=== PATIENT | male | born 1960 | race Caucasian/White ===

== ENCOUNTER → 2018-03-14 | Outpatient (CLI) | payer OTHER ==
--- NOTE | 2018-03-14 15:09 | RAD ---
ANKLE LEFT 3V History: Left ankle injury, pain just below lateral malleolus Comparison: None. Findings: 3 views of the left ankle are submitted. No acute fracture or dislocation is identified. Impression: 1. No acute osseous abnormality is identified. Electronically signed by: Edmund Morales MD (03/14/2018 3:06 PM) [id number]
== END | disposition home or self-care (01) ==
LOC: DXRAD 14:43
PROVIDERS: ATTEND Physician Assistant
DX: S99.812D Other specified injuries of left ankle, subsequent encounter (principal); X58.XXXD Exposure to other specified factors, subsequent encounter
CPT/HCPCS: 73610

== ENCOUNTER 2018-07-04 16:04 | Emergency (ER) | payer OTHER ==
[~2018-07-04] VITALS: Ht 175.3 cm; Wt 79.4 kg
[2018-07-04 16:29] VITALS: BP 137/82
[2018-07-04] MEDS ORDERED: methylPREDNISolone SOD SUCC PF 125 MG/2 ML VIAL. IM ONE (17:15)
[2018-07-04] MEDS ORDERED: METH4TAB2 PO (17:22)
[2018-07-04] MEDS ORDERED: HYDR25TA PO (17:22)
[2018-07-04] MEDS ORDERED: BETA15CR5 TP (17:22)
--- NOTE | 2018-07-04 17:23 | PHYS DOC ---
Past History Past Medical History: No Pertinent History Past Surgical History: No Surgical History Alcohol Use: None Drug Use: None Adult General Chief Complaint Chief Complaint: SKIN RASH/ABSCESS HPI HPI Patient is a 57-year-old male who presents with complaining of skin rash for one week. Patient states he was exposed to poison patricia or poison oak one week ago and has rash in nature, chest, upper extremity in genital area that did not get better with applying calamine and taking Benadryl. Patient denies fever and chills, shortness of breath, nausea and vomiting. Review of Systems Review of Systems Constitutional: Denies fever or chills [] Eyes: Denies change in visual acuity, redness, or eye pain [] HENT: Denies nasal congestion or sore throat [] Respiratory: Denies cough or shortness of breath [] Cardiovascular: No additional information not addressed in HPI [] GI: Denies abdominal pain, nausea, vomiting, bloody stools or diarrhea [] : Denies dysuria or hematuria [] Musculoskeletal: Denies back pain or joint pain [] Integument: Reports rash and erythema Neurologic: Denies headache, focal weakness or sensory changes [] Endocrine: Denies polyuria or polydipsia [] All other systems were reviewed and found to be within normal limits, except as documented in this note. Current Medications Current Medications Current Medications Medications (Trade) Dose Ordered Sig/Noé Start Time Stop Time Status Last Admin Dose Admin Methylprednisolone Sodium Succinate (SOLU-Medrol 125MG VIAL) 125 mg 1X ONCE 07/04/18 17:15 07/04/18 17:16 DC 07/04/18 17:14 125 MG Allergies Allergies Allergies Coded Allergies Type Severity Reaction Last Updated Verified Sulfa (Sulfonamide Antibiotics) Allergy Severe 07/04/18 Yes Physical Exam Physical Exam Constitutional: Well developed, well nourished, mild distress, non-toxic appearance. [] HENT: Normocephalic, atraumatic Eyes: PERRLA, EOMI, conjunctiva normal, no discharge. [] Neck: Normal range of motion, no tenderness, supple, no stridor. [] Cardiovascular:Heart rate regular rhythm, no murmur [] Lungs & Thorax: Bilateral breath sounds clear to auscultation [] Skin: Warm, dry, particular rash on make, upper back, upper extremities, genital area and trunk without sign of infection Back: No tenderness, no CVA tenderness. [] Extremities: No tenderness, no cyanosis, no clubbing, ROM intact, no edema. [] Neurologic: Alert and oriented X 3, normal motor function, normal sensory function, no focal deficits noted. [] Psychologic: Affect normal, judgement normal, mood normal. [] Current Patient Data Vital Signs Vital Signs Date Time Temp Pulse Resp B/P (MAP) Pulse Ox O2 Delivery O2 Flow Rate FiO2 07/04/18 16:29 98.3 65 18 97 Room Air EKG EKG [] Radiology/Procedures Radiology/Procedures [] Course & Med Decision Making Course & Med Decision Making discharge: I've spoken with the patient and/or caregivers. I've explained the patient's condition, diagnosis and treatment plan based on information available to me at this time. I've answered the patient's and/or caregivers questions and addressed any concerns. The patient and/or caregivers have a good understanding the patient's diagnosis, condition and treatment plan as can be expected at this point. Vital signs have been stabilized. The patient's condition is stable for discharge from the emergency department. The patient will pursue further outpatient evaluation with her primary care provider or other designated consulting physician as outlined in the discharge instructions. Patient and/or caregivers are agreeable to this plan of care and follow-up instructions have been explained in detail. The patient and/or caregivers have received these instructions in written format and expressed understanding of these discharge instructions. The patient and her caregivers are aware that if any significant change in condition or worsening of symptoms should prompt him to immediately return to this of the closest emergency department. If an emergent department is not readily available I would encourage him to call 911. uGrwinder Disclaimer Dragon Disclaimer This electronic medical record was generated, in whole or in part, using a voice recognition dictation system. Departure Departure: Impression: Primary Impression: Contact dermatitis Additional Impression: Poison patricia dermatitis Disposition: HOME, SELF-CARE (1720) Condition: STABLE Referrals: KARISHMA BURRELL (PCP) Patient Instructions: Poison [place] Additional Instructions: Drink plenty of liquids Follow-up with your primary care physician in 3-5 days Return to ER if not getting better Scripts Betamethasone Dipropionate (BETAMETHASONE DIPROPIONATE) 15 Gm Cream..g. 1 NAVEEN TP BID, #45 GM 1 Refill Prov: ALEX ALVARADO MD 07/04/18 Methylprednisolone (MEDROL) 4 Mg Tab.ds.pk 1 PKG PO UD, #1 PKG Prov: ALEX ALVARADO MD 07/04/18 Hydroxyzine Hcl (HYDROXYZINE HCL) 25 Mg Tablet 1 TAB PO TID PRN for ITCHING, #30 TAB Prov: ALEX ALVARADO MD 07/04/18 Problem Qualifiers ALEX ALVARADO MD Jul 04, 2018 17:23
== END 2018-07-04 17:31 | disposition home or self-care (01) ==
LOC: ER 16:04
DX: L23.7 Allergic contact dermatitis due to plants, except food (principal); Z88.2 Allergy status to sulfonamides
CPT/HCPCS: 96372; 99283; J2930

== ENCOUNTER 2019-06-06 14:49 | Emergency (ER) | payer OTHER ==
[~2019-06-06] VITALS: Ht 175.3 cm; Wt 88.7 kg
[~2019-06-06 14:49] MED LIST: BETA15CR5 TP; HYDR25TA PO; METH4TAB2 PO
[2019-06-06 15:06] VITALS: BP 142/87
[2019-06-06] MEDS ORDERED: HYDR25TA PO (15:15)
[2019-06-06] MEDS ORDERED: DOXY100T PO (15:15)
--- NOTE | 2019-06-06 15:16 | PHYS DOC ---
Past History Past Medical History: No Pertinent History Past Surgical History: No Surgical History Smoking: Non-smoker Alcohol Use: None Drug Use: None Adult General Chief Complaint Chief Complaint: INSECT BITE HPI HPI Patient is a 58-year-old male presents complaining of a presumed spider bite on his left arm. This happened Wednesday. On Wednesday he started developing some increasing aches and pains including some generalized myalgias. This improved with ibuprofen. Patient is also been taking Benadryl and applying calamine lotion to the area. No purulent drainage. No fever. No difficulty breathing. No numbness or tingling. The myalgias improved over the course of the next day but there are still some remaining. No worsening with exertion. No shortness of breath. Symptoms are moderate in intensity.[] Review of Systems Review of Systems Constitutional: Denies fever or chills [] Eyes: Denies change in visual acuity, redness, or eye pain [] HENT: Denies nasal congestion or sore throat [] Respiratory: Denies cough or shortness of breath [] Cardiovascular: No chest pain, no palpitations, no worsening of pain in the arm with exertion.[] GI: Denies abdominal pain, nausea, vomiting, bloody stools or diarrhea [] : Denies dysuria or hematuria [] Musculoskeletal: Denies back pain or joint pain [] Integument: See history of present illness[] Neurologic: Denies headache, focal weakness or sensory changes [] Endocrine: Denies polyuria or polydipsia [] All other systems were reviewed and found to be within normal limits, except as documented in this note. Allergies Allergies Allergies Coded Allergies Type Severity Reaction Last Updated Verified Sulfa (Sulfonamide Antibiotics) Allergy Severe 07/04/18 Yes Physical Exam Physical Exam Constitutional: Well developed, well nourished, no acute distress, non-toxic appearance. [] HENT: Normocephalic, atraumatic, bilateral external ears normal, oropharynx moist, no oral exudates, nose normal. [] Eyes: PERRLA, EOMI, conjunctiva normal, no discharge. [] Neck: Normal range of motion, no tenderness, supple, no stridor. [] Cardiovascular:Heart rate regular rhythm, no murmur [] Lungs & Thorax: Bilateral breath sounds clear to auscultation [] Abdomen: Bowel sounds normal, soft, no tenderness, no masses, no pulsatile masses. [] Skin: Warm, dry, there are 3, 2 mm in diameter areas that appear excoriated. There is mild erythema around these areas of excoriation. No purulent drainage. No drainable abscess. No axillary lymphadenopathy. He is distally neurovascularly intact.[] Back: No tenderness, no CVA tenderness. [] Extremities: No tenderness, no cyanosis, no clubbing, ROM intact, no edema. [] Neurologic: Alert and oriented X 3, normal motor function, normal sensory function, no focal deficits noted. [] Psychologic: Affect normal, judgement normal, mood normal. [] EKG EKG [] Radiology/Procedures Radiology/Procedures [] Course & Med Decision Making Course & Med Decision Making Pertinent Labs and Imaging studies reviewed. (See chart for details) ED course: Patient arrived, was placed in bed, and tolerated exam well. Patient initially was uncertain as to when his last tetanus vaccine was administered so one was ordered. Prior to administration of his tetanus vaccine here, patient was able to access his medical records and found that one had been administered in 2017. Discussed findings and plan with patient who voiced understanding. All questions were answered. He was discharged in improved condition Medical decision making: There is no evidence of abscess, and eschar from brown recluse spider, nor generalized abdominal cramping from a black . There appears to be some local cellulitis from the break in the skin at the location of the injury. His other symptoms may have been from an envenomation but it seems to be resolving. Will treat with antihistamines as well as antibiotics for the cellulitis.[] Dragon Disclaimer Dragon Disclaimer This electronic medical record was generated, in whole or in part, using a voice recognition dictation system. Departure Departure: Impression: Primary Impression: Accidental spider bite Disposition: 01 HOME, SELF-CARE Condition: IMPROVED Referrals: KARISHMA BURRELL (PCP) Follow-up in 2 days Patient Instructions: Cellulitis, Spider Bite Additional Instructions: Keep the area clean and dry. Apply warm compresses for 15 minutes at a time, at least 4 times a day. Follow-up with your regular doctor in 2 days. Return to the ER if worsening pain, purulent drainage, fever of more than 101, or any other concerns. Scripts Hydroxyzine Hcl (HYDROXYZINE HCL) 25 Mg Tablet 1 TAB PO TID for allergic reaction, #30 TAB Prov: CLAUDY WRIGHT DO 06/06/19 Doxycycline Hyclate (DOXYCYCLINE HYCLATE) 100 Mg Tablet 1 TAB PO BID for cellulitis, #20 TAB Prov: CLAUDY WRIGHT DO 06/06/19 CLAUDY WRIGHT DO Jun 06, 2019 15:16
[2019-06-06] MEDS ORDERED: DIPHTH,PERTUSS(ACELL),TET TOX 0.5 ML DISP.SYRIN. VAX IM ONE (15:30)
== END 2019-06-06 15:18 | disposition home or self-care (01) ==
LOC: ER 14:49
DX: T63.301A Toxic effect of unspecified spider venom, accidental (unintentional), initial encounter (principal); M79.10 Myalgia, unspecified site; Z88.2 Allergy status to sulfonamides; Y92.89 Other specified places as the place of occurrence of the external cause
CPT/HCPCS: 99283

== ENCOUNTER 2021-12-09 13:38 | Emergency (ER) | payer OTHER ==
[~2021-12-09] VITALS: Ht 175.3 cm; Wt 90.4 kg
[~2021-12-09 13:38] MED LIST changes: +DOXY100T PO
--- NOTE | 2021-12-09 13:45 | PHYS DOC ---
Past History Past Medical History: No Pertinent History Past Surgical History: No Surgical History Smoking: Non-smoker Alcohol Use: None Drug Use: None General Adult HPI: HPI: Patient is a 61-year-old male who presents with palpitations. He has experienced intermittent palpitation symptoms since the year 1995. In 2000, he saw a professor of geology, wore a Holter monitor for period of time, no definitive diagnosis was made. He is unsure of the specifics. He reports that he has symptoms daily. He reports that today his symptoms seem to be coming more frequently than usual. He denies chest pain, dyspnea, dizziness, syncope, numbness or tingling, motor weakness, abdominal pain, nausea or vomiting. He has been eating and drinking well. He does report that his been drinking more coffee recently. No unintentional dramatic weight loss. He does have a primary care physician, with whom he has an appointment on Wednesday. He has not brought up his palpitation symptoms to his PCP recently. Review of Systems: Review of Systems: As per HPI. Allergies: Allergies: Allergies Coded Allergies Type Severity Reaction Last Updated Verified Sulfa (Sulfonamide Antibiotics) Allergy Severe 07/04/18 Yes Physical Exam: PE: Constitutional: Well developed, well nourished, no acute distress, non-toxic appearance. [] HENT: Normocephalic, atraumatic, no facial or oral swelling. Mucous membranes are moist. Eyes: Injectable normal, sclera anicteric Neck: Normal range of motion, no tenderness, supple, no stridor. Trachea midline, no thyromegaly Cardiovascular:Heart rate regular rhythm, was 2 radial and +2 posterior tibial pulses bilaterally. Lungs & Thorax: Clear to auscultation bilaterally without rales, rhonchi or wheezes. Abdomen: [place] is soft, nondistended, nontender to palpation. No palpable mass organomegaly. Skin: Warm, dry, no erythema, no rash. [] Back: No tenderness, no CVA tenderness. [] Extremities: No tenderness, no cyanosis, no clubbing, ROM intact, no edema. No calf tenderness. Neurologic: Alert and oriented X 3, normal motor function, normal sensory function, no focal deficits noted. [] Psychologic: Affect normal, judgement normal, mood normal. He is pleasant and cooperative. EKG: EKG: EKG is interpreted at 1357 Rhythm is sinus Rate is 63 bpm [place] is normal No STEMI Radiology/Procedures: Radiology/Procedures: [] Heart Score: C/O Chest Pain: No Risk Factors: Risk Factors: DM, Current or recent (<one month) smoker, HTN, HLP, family history of CAD, obesity. Risk Scores: Score 0 - 3: 2.5% MACE over next 6 weeks - Discharge Home Score 4 - 6: 20.3% MACE over next 6 weeks - Admit for Clinical Observation Score 7 - 10: 72.7% MACE over next 6 weeks - Early Invasive Strategies Course & Med Decision Making: Course & Med Decision Making Pertinent Labs and Imaging studies reviewed. (See chart for details) Patient is observed in the ED. He is anxiously awaiting discharge. TSH is pending at this time, he understands, and he understands to follow-up with his PCP. No arrhythmias been noted on telemetry. EKG is unremarkable. He has not subjectively complained of any more palpitations here in the ED. I have discussed all of the findings, differential diagnosis and plan of care with him. I recommend he follow-up with his PCP, he should see outpatient cardiology again as well, repeat Holter monitoring may be of benefit. No indication for emergent imaging, further invasive exams or admission at this time. Return precautions are given. He verbalizes understanding. Gurwinder Disclaimer: Gurwinder Disclaimer: This electronic medical record was generated, in whole or in part, using a voice recognition dictation system. Departure Departure: Impression: Primary Impression: Palpitations Disposition: HOME / SELF CARE / HOMELESS Condition: STABLE Referrals: KARISHMA BURRELL (PCP) KG HORAN MD Patient Instructions: Palpitations Additional Instructions: Return to the ER for chest pain, shortness of breath, severe dizziness, passing out, weakness or other concerns. Please follow-up with your primary care physician on Wednesday. Please also follow-up with outpatient cardiology, you may need to wear a Holter monitor again to try to find out what is causing your symptoms. KARLA JAIMES DO Dec 09, 2021 13:45
--- NOTE | 2021-12-09 14:09 | EKG ---
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
[2021-12-09 14:35] LABS: BASO # 0.1 x10^3/uL (0.0-0.2); BASO % 1 % (0-3); EOS # 0.1 x10^3/uL (0.0-0.7); EOS % 2 % (0-3); HEMATOCRIT 41.8 % (39.0-53.0); HEMOGLOBIN 14.4 g/dL (13.0-17.5); LYMPH % 38 % (24-48); MEAN CORPUSCULAR HEMOGLOBIN 30 pg (25-35); MEAN CORPUSCULAR HGB CONC 35 g/dL (31-37); MEAN CORPUSCULAR VOLUME 88 fL (79-100); MONO # 0.4 x10^3/uL (0.0-1.1); MONO % 8 % (0-9); NEUT # 2.8 x10^3uL (1.8-7.7); NEUT % 52 % (31-73); PLATELET COUNT 213 x10^3/uL (140-400); RED BLOOD COUNT 4.76 x10^6/uL (4.30-5.70); RED CELL DISTRIBUTION WIDTH 13.7 % (11.5-14.5); WHITE BLOOD COUNT 5.4 x10^3/uL (4.0-11.0)
[2021-12-09 14:50] LABS: CALCIUM 8.6 mg/dL (8.5-10.1); CREATININE 0.8 mg/dL (0.7-1.3)
[2021-12-09 15:30] VITALS: BP 130/70
== END 2021-12-09 16:00 | disposition home or self-care (01) ==
LOC: ER 13:38
DX: R00.2 Palpitations (principal); Z88.2 Allergy status to sulfonamides
CPT/HCPCS: 36415; 80048; 83735; 84443; 85025; 93005; 99284

== ENCOUNTER → 2022-02-03 | Outpatient (CLI) | payer OTHER | LOC: ECHO 13:32 | PROVIDERS: ATTEND Internal Medicine Cardiovascular Disease | DX: R00.2 Palpitations (principal) | CPT/HCPCS: 93306 ==